=== PATIENT | female | born 1995 | race Caucasian/White ===

== ENCOUNTER → 2016-10-08 | Outpatient (CLI) | payer OTHER ==
[2016-01-28 14:00] VITALS: BP 133/92
[~2016-10-08] MED LIST: CETI10CA PO; CIPR10DR AS; FLUT9.9S NS; IBUP-1027 PO; NORG1TAB6 PO; OXYC-323 PO
--- NOTE | 2016-10-08 10:45 | KCIC ---
Pelvis transvaginal Indication: Pelvic pain and history of polycystic ovary syndrome. Transvaginal pelvic sonography was performed. The uterus measures 7.9 x 2.5 x 3.4 centimeters. The endometrium is 9 millimeters in thickness. No uterine mass is identified. Trace fluid in the lower uterine segment is seen. The right ovary measures 3.7 x 2.5 x 4.0 centimeters and the left ovary measures 3.2 x 2.4 x 4.0 centimeters. Multiple small follicles are present in both ovaries. There is normal blood flow to both ovaries. No mass is identified. No free fluid is identified. Impression: Slight increase in size of bilateral ovaries which contain multiple small follicles. This could be consistent with patient's diagnosis of polycystic ovary syndrome. No other abnormalities are identified. Electronically signed by: Luis Jiménez MD (October 08, 2016 10:44:35)
== END | disposition home or self-care (01) ==
LOC: KCIC US 08:40
PROVIDERS: ATTEND Obstetrics & Gynecology
DX: R10.2 Pelvic and perineal pain (principal); Z87.42 Personal history of other diseases of the female genital tract
CPT/HCPCS: 76830; 76856

== ENCOUNTER → 2016-12-04 | Outpatient (CLI) | payer OTHER ==
[2016-01-28 14:00] VITALS: BP 133/92
[2016-12-04 11:02] LABS: CALCIUM 8.5 mg/dL (8.5-10.1); CREATININE 0.7 mg/dL (0.6-1.0); GFR 104.6
== END | disposition home or self-care (01) ==
LOC: LAB 10:15
PROVIDERS: ATTEND Obstetrics & Gynecology
DX: E28.2 Polycystic ovarian syndrome (principal)
CPT/HCPCS: 36415; 80048